=== PATIENT | female | born 1995 | race Caucasian/White ===

== ENCOUNTER 2017-03-03 19:37 | Emergency (ER) | payer BC ==
--- NOTE | 2017-03-03 20:09 | EDM.PDOC ---
ED HPI GENERAL MEDICAL PROBLEM - General Stated Complaint: HEADACHE, COUGH, VOMITING Time Seen by Provider: 03/03/17 20:04 Source of Information: Reports: Patient History Limitations: Reports: No Limitations - History of Present Illness INITIAL COMMENTS - FREE TEXT/NARRATIVE: History of present illness: [22-year-old female presenting with complaints of headache, nausea, vomiting with progressive signs and symptoms over the last 72 hours resulting in the vomiting today. Patient indicates that she just feels very unwell and felt she needed to be worked up for the flu.] Review of systems: As per history of present illness and below otherwise all systems reviewed and negative. Past medical history: As per history of present illness and as reviewed below otherwise noncontributory. Surgical history: As per history of present illness and as reviewed below otherwise noncontributory. Social history: No reported history of drug or alcohol abuse. Family history: As per history of present illness and as reviewed below otherwise noncontributory. Physical exam: HEENT: Atraumatic, normocephalic, pupils reactive, negative for conjunctival pallor or scleral icterus, mucous membranes moist, throat clear, neck supple, nontender, trachea midline. Lungs: Clear to auscultation, breath sounds equal bilaterally, chest nontender. Heart: S1S2, regular, negative for clicks, rubs, or JVD. Abdomen: Soft, nondistended, nontender. Negative for masses or hepatosplenomegaly. Negative for costovertebral tenderness. Pelvis: Stable nontender. Genitourinary: Deferred. Rectal: Deferred. Extremities: Atraumatic, negative for cords or calf pain. Neurovascular unremarkable. Neuro: Awake, alert, oriented. Cranial nerves II through XII unremarkable. Cerebellum unremarkable. Motor and sensory unremarkable throughout. Exam nonfocal. Global assessment is benign save the subjective complaint as noted in history of present illness Strep and influenza both negative patient tolerated by mouth challenge Diagnostics: [Strep, influenza] Therapeutics: [] Impression: [Viral syndrome] Plan: [Zofran, tramadol] Definitive disposition and diagnosis as appropriate pending reevaluation and review of above. throat Pain Score (Numeric/FACES): 7 head Pain Score (Numeric/FACES): 10 chest Pain Score (Numeric/FACES): 6 - Related Data Allergies Allergy/AdvReac Type Severity Reaction Status Date / Time acetaminophen [From Vicodin] Allergy Abdominal Verified 12/28/17 19:51 Pain hydrocodone bitartrate Allergy Abdominal Verified 03/03/17 19:51 [From Vicodin] Pain Home Meds: Home Meds . 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: - Infectious Disease History Infectious Disease History: Reports: None Social & Family History - Family History Family Medical History: Noncontributory - Tobacco Use Smoking Status *Q: Never Smoker Second Hand Smoke Exposure: No - Recreational Drug Use Recreational Drug Use: No ED ROS GENERAL - Review of Systems Review Of Systems: See Below (History of present illness) ED EXAM, GENERAL - Physical Exam Exam: See Below (See history of present illness) Course - Vital Signs Last Recorded V/S: Last Vital Signs Temp 35.8 C 03/03/17 19:37 Pulse 62 03/03/17 20:32 Resp 18 03/03/17 20:32 BP 114/66 03/03/17 20:32 Pulse Ox 98 03/03/17 19:37 - Orders/Labs/Meds Orders: Active Orders 24 hr Category Date Time Status CULTURE STREP A CONFIRMATION [] Stat Lab 03/03/17 20:25 Results STREP SCRN A RAPID W CULT CONF [] Stat Lab 03/03/17 20:25 Results Meds: Medications Discontinued Medications Generic Name Dose Route Start Last Admin Trade Name Bhupinderq PRN Reason Stop Dose Admin Ketorolac Tromethamine 60 mg 03/03/17 20:10 03/03/17 20:24 Toradol IM 03/03/17 20:11 60 mg ONETIME ONE Administration Ondansetron HCl 4 mg 03/03/17 20:19 03/03/17 20:32 Zofran Odt PO 03/03/17 20:20 4 mg ONETIME ONE Administration Tramadol HCl 100 mg 03/03/17 22:00 03/03/17 22:10 Ultram PO 03/03/17 22:01 100 mg ONETIME ONE Administration Departure - Departure Time of Disposition: 22:32 Disposition: Home, Self-Care 01 Condition: Good Clinical Impression: Viral syndrome - Discharge Information Referrals: PCP,Unknown [Primary Care Provider] - Additional Instructions: The following information is given to patients seen in the emergency department who are being discharged to home. This information is to outline your options for follow-up care. We provide all patients seen in our emergency department with a follow-up referral. The need for follow-up, as well as the timing and circumstances, are variable depending upon the specifics of your emergency department visit. If you don't have a primary care physician on staff, we will provide you with a referral. We always advise you to contact your personal physician following an emergency department visit to inform them of the circumstance of the visit and for follow-up with them and/or the need for any referrals to a consulting specialist. The emergency department will also refer you to a specialist when appropriate. This referral assures that you have the opportunity for follow-up care with a specialist. All of these measure are taken in an effort to provide you with optimal care, which includes your follow-up. Under all circumstances we always encourage you to contact your private physician who remains a resource for coordinating your care. When calling for follow-up care, please make the office aware that this follow-up is from your recent emergency room visit. If for any reason you are refused follow-up, please contact the [facility] Emergency Department at and asked to speak to the emergency department charge nurse. Take medication as directed Follow-up with primary care 1-2 days Return to ED as needed as discussed - My Orders Last 24 Hours: My Active Orders 03/03/17 20:25 CULTURE STREP A CONFIRMATION [RM] Stat STREP SCRN A RAPID W CULT CONF [RM] Stat - Assessment/Plan Last 24 Hours: My Active Orders 03/03/17 20:25 CULTURE STREP A CONFIRMATION [RM] Stat STREP SCRN A RAPID W CULT CONF [RM] Stat
[2017-03-03] MEDS ORDERED: Ketorolac 60 MG/2 ML SDV IM ONE (20:10)
[2017-03-03] MEDS ORDERED: Ondansetron 4 MG Tab.DIS PO ONE (20:19)
[2017-03-03] MEDS ORDERED: traMADol 50 MG Tab PO ONE (22:00)
[2017-03-04 00:47] VITALS: BP 111/59
== END 2017-03-03 23:45 | disposition home or self-care (01) ==
LOC: MW.ED 19:37
DX: B34.9 Viral infection, unspecified (principal); Z88.5 Allergy status to narcotic agent; Z88.6 Allergy status to analgesic agent
CPT/HCPCS: 87081; 87804; 87880; 96372; 99283; A9270; J1885; 99284

== ENCOUNTER 2018-05-10 20:15 | Emergency (ER) | payer BC ==
--- NOTE | 2018-05-10 21:15 | EDM.PDOC ---
<Sal Cullen - Last Filed: 05/10/18 22:00> ED HPI GENERAL MEDICAL PROBLEM - General Chief Complaint: Abdominal Pain Stated Complaint: HEADACHE, THROWING UP AND PAIN IN ABDOMINAL Time Seen by Provider: 05/10/18 21:14 Source of Information: Reports: Patient History Limitations: Reports: No Limitations - History of Present Illness INITIAL COMMENTS - FREE TEXT/NARRATIVE: HISTORY AND PHYSICAL: History of present illness: Patient is a 23-year-old female here with complaint of abdominal pain. She states she had an SI joint steroid injection yesterday by a radiologist in [place]. She was told if she had pain or headache to come to the ED. She reports she developed upper abdominal pain today. She has had 3 episodes of vomiting and some non-bloody diarrhea today. She does have pain at the injection site but states the pain is not more severe than it was prior to the injection. She denies loss of bowel or bladder control, saddle anesthesia, lower extremity weakness. She states she does have a headache today. She denies previous abdominal surgeries or significant past medical history. Review of systems: As per history of present illness and below otherwise all systems reviewed and negative. Past medical history: As per history of present illness and as reviewed below otherwise noncontributory. Surgical history: As per history of present illness and as reviewed below otherwise noncontributory. Social history: No reported history of drug or alcohol abuse. Family history: As per history of present illness and as reviewed below otherwise noncontributory. Physical exam: General: Patient sitting comfortably in no acute distress and nontoxic appearing HEENT: Atraumatic, normocephalic, pupils reactive, negative for conjunctival pallor or scleral icterus, mucous membranes moist, throat clear, neck supple, nontender, trachea midline. No meningeal signs. Lungs: Clear to auscultation, breath sounds equal bilaterally, chest nontender. Heart: S1S2, regular, negative for clicks, rubs, or overt murmur. Abdomen: Left upper abdominal and epigastric tenderness to palpation. Bowel sounds normal. Soft, nondistended. Negative for masses or hepatosplenomegaly. Negative for costovertebral tenderness. No rigidity, rebound, guarding. Pelvis: Stable nontender. Genitourinary: Deferred. Rectal: Deferred. Extremities: Atraumatic, negative for cords or calf pain. Neurovascular unremarkable. Neuro: Awake, alert, oriented. Cranial nerves II through XII unremarkable. Cerebellum unremarkable. Motor and sensory unremarkable throughout. Exam nonfocal. Notes: Diagnostics: CBC, CMP, lipase, UA, urine hcg Therapeutics: 1L Normal Saline IV 4mg Zofran IV 2mg Morphine IV Prescriptions: Impression: [] Plan: Signed out to Dr. Pickering at 2200 Definitive disposition and diagnosis as appropriate pending reevaluation and review of above. Upper Abdomen Pain Score (Numeric/FACES): 10 - Related Data Allergies Allergy/AdvReac Type Severity Reaction Status Date / Time acetaminophen [From Vicodin] Allergy Abdominal Verified 03/03/17 19:51 Pain hydrocodone bitartrate Allergy Abdominal Verified 03/03/17 19:51 [From Vicodin] Pain Home Meds: Home Meds . 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 ED EXAM, GI/ABD - Physical Exam Exam: See Below (see dictation) Course - Vital Signs Last Recorded V/S: Last Vital Signs Temp 36.8 C 05/10/18 20:40 Pulse 67 05/10/18 20:40 Resp 18 05/10/18 20:40 BP 121/72 05/10/18 20:40 Pulse Ox 98 05/10/18 20:40 - Orders/Labs/Meds Orders: Active Orders 24 hr Category Date Time Status CULTURE URINE [RM] Stat Lab 05/10/18 21:18 Received Labs: Laboratory Tests 05/10/18 05/10/18 05/10/18 Range/Units 21:18 21:18 21:29 WBC 9.51 (4.0-11.0) K/uL RBC 4.66 (4.30-5.90) M/uL Hgb 13.5 (12.0-16.0) g/dL Hct 37.3 (36.0-46.0) % MCV 80.0 (80.0-98.0) fL MCH 29.0 (27.0-32.0) pg MCHC 36.2 (31.0-37.0) g/dL RDW Std Deviation 40.9 (28.0-62.0) fl RDW Coeff of Bladimir 14 (11.0-15.0) % Plt Count 318 (150-400) K/uL MPV 9.50 (7.40-12.00) fL Neut % (Auto) 65.0 (48.0-80.0) % Lymph % (Auto) 24.7 (16.0-40.0) % [place] % (Auto) 9.5 (0.0-15.0) % Eos % (Auto) 0.7 (0.0-7.0) % Baso % (Auto) 0.1 (0.0-1.5) % Neut # (Auto) 6.2 H (1.4-5.7) K/uL Lymph # (Auto) 2.4 (0.6-2.4) K/uL [place] # (Auto) 0.9 H (0.0-0.8) K/uL Eos # (Auto) 0.1 (0.0-0.7) K/uL Baso # (Auto) 0.0 (0.0-0.1) K/uL Nucleated RBC % 0.0 /100WBC Nucleated RBCs # 0 K/uL Sodium (136-145) mmol/L Potassium (3.5-5.1) mmol/L Chloride (98-107) mmol/L Carbon Dioxide (21.0-32.0) mmol/L BUN (7.0-18.0) mg/dL Creatinine (0.6-1.0) mg/dL Est Cr Clr Drug Dosing mL/min Estimated GFR (MDRD) ml/min Glucose (74-106) mg/dL Calcium (8.5-10.1) mg/dL Total Bilirubin (0.2-1.0) mg/dL AST (15-37) IU/L ALT (14-63) IU/L Alkaline Phosphatase (46-116) U/L Total Protein (6.4-8.2) g/dL Albumin (3.4-5.0) g/dL Globulin (2.6-4.0) g/dL Albumin/Globulin Ratio (0.9-1.6) Lipase (73-393) U/L Urine Color YELLOW Urine Appearance SLT CLOUDY Urine pH 6.0 (5.0-8.0) Ur Specific Bard 1.025 (1.001-1.035) Urine Protein NEGATIVE (NEGATIVE) mg/dL Urine Glucose (UA) NEGATIVE (NEGATIVE) mg/dL Urine Ketones NEGATIVE (NEGATIVE) mg/dL Urine Occult Blood MODERATE H (NEGATIVE) Urine Nitrite NEGATIVE (NEGATIVE) Urine Bilirubin NEGATIVE (NEGATIVE) Urine Urobilinogen 0.2 (<2.0) EU/dL Ur Leukocyte Esterase SMALL H (NEGATIVE) Urine RBC 0-2 (0-2/HPF) Urine WBC 5-7 (0-5/HPF) Ur Epithelial Cells MODERATE (NONE-FEW) Urine Bacteria FEW (NEGATIVE) Urine Mucus LIGHT (NONE-MOD) Urine HCG, Qual NEGATIVE (NEGATIVE) 05/10/18 Range/Units 21:29 WBC (4.0-11.0) K/uL RBC (4.30-5.90) M/uL Hgb (12.0-16.0) g/dL Hct (36.0-46.0) % MCV (80.0-98.0) fL MCH (27.0-32.0) pg MCHC (31.0-37.0) g/dL RDW Std Deviation (28.0-62.0) fl RDW Coeff of Bladimir (11.0-15.0) % Plt Count (150-400) K/uL MPV (7.40-12.00) fL Neut % (Auto) (48.0-80.0) % Lymph % (Auto) (16.0-40.0) % [place] % (Auto) (0.0-15.0) % Eos % (Auto) (0.0-7.0) % Baso % (Auto) (0.0-1.5) % Neut # (Auto) (1.4-5.7) K/uL Lymph # (Auto) (0.6-2.4) K/uL [place] # (Auto) (0.0-0.8) K/uL Eos # (Auto) (0.0-0.7) K/uL Baso # (Auto) (0.0-0.1) K/uL Nucleated RBC % /100WBC Nucleated RBCs # K/uL Sodium 139 (136-145) mmol/L Potassium 3.7 (3.5-5.1) mmol/L Chloride 105 (98-107) mmol/L Carbon Dioxide 26.0 (21.0-32.0) mmol/L BUN 18 (7.0-18.0) mg/dL Creatinine 1.0 (0.6-1.0) mg/dL Est Cr Clr Drug Dosing 84.36 mL/min Estimated GFR (MDRD) > 60.0 ml/min Glucose 99 (74-106) mg/dL Calcium 8.8 (8.5-10.1) mg/dL Total Bilirubin 0.7 (0.2-1.0) mg/dL AST 9 L (15-37) IU/L ALT 17 (14-63) IU/L Alkaline Phosphatase 56 (46-116) U/L Total Protein 7.7 (6.4-8.2) g/dL Albumin 4.0 (3.4-5.0) g/dL Globulin 3.7 (2.6-4.0) g/dL Albumin/Globulin Ratio 1.1 (0.9-1.6) Lipase 284 (73-393) U/L Urine Color Urine Appearance Urine pH (5.0-8.0) Ur Specific Bard (1.001-1.035) Urine Protein (NEGATIVE) mg/dL Urine Glucose (UA) (NEGATIVE) mg/dL Urine Ketones (NEGATIVE) mg/dL Urine Occult Blood (NEGATIVE) Urine Nitrite (NEGATIVE) Urine Bilirubin (NEGATIVE) Urine Urobilinogen (<2.0) EU/dL Ur Leukocyte Esterase (NEGATIVE) Urine RBC (0-2/HPF) Urine WBC (0-5/HPF) Ur Epithelial Cells (NONE-FEW) Urine Bacteria (NEGATIVE) Urine Mucus (NONE-MOD) Urine HCG, Qual (NEGATIVE) Meds: Medications Discontinued Medications Generic Name Dose Route Start Last Admin Trade Name Freq PRN Reason Stop Dose Admin Sodium Chloride 1,000 mls @ 999 mls/hr 05/10/18 21:43 05/10/18 21:30 Normal Saline IV 05/10/18 22:43 999 mls/hr STAT ONE Administration Iopamidol 100 ml 05/10/18 22:16 05/10/18 22:16 Isovue Multipack-370 (76%) IVPUSH 05/10/18 22:17 100 ml ONETIME STA Administration Morphine Sulfate 2 mg 05/10/18 21:47 05/10/18 21:50 Morphine IVPUSH 05/10/18 21:48 2 mg ONETIME ONE Administration Morphine Sulfate Confirm 05/10/18 21:48 05/10/18 21:53 Morphine Administered 05/10/18 21:49 Not Given Dose 2 mg .ROUTE .STK-MED ONE Ondansetron HCl 4 mg 05/10/18 21:43 05/10/18 21:49 Zofran IVPUSH 05/10/18 21:44 4 mg ONETIME ONE Administration Departure - Departure Disposition: Home, Self-Care 01 Clinical Impression: Abdominal pain Qualifiers: Abdominal location: left upper quadrant Qualified Code(s): R10.12 - Left upper quadrant pain - Discharge Information Referrals: PCP,None [Primary Care Provider] - Forms: ED Department Discharge Additional Instructions: The following information is given to patients seen in the emergency department who are being discharged to home. This information is to outline your options for follow-up care. We provide all patients seen in our emergency department with a follow-up referral. The need for follow-up, as well as the timing and circumstances, are variable depending upon the specifics of your emergency department visit. If you don't have a primary care physician on staff, we will provide you with a referral. We always advise you to contact your personal physician following an emergency department visit to inform them of the circumstance of the visit and for follow-up with them and/or the need for any referrals to a consulting specialist. The emergency department will also refer you to a specialist when appropriate. This referral assures that you have the opportunity for followup care with a specialist. All of these measure are taken in an effort to provide you with optimal care, which includes your followup. Under all circumstances we always encourage you to contact your private physician who remains a resource for coordinating your care. When calling for followup care, please make the office aware that this follow-up is from your recent emergency room visit. If for any reason you are refused follow-up, please contact the [facility] emergency department at and ask to speak to the emergency department charge nurse. [facility]-General [facility] Professional Building [address] [place] [address] [address] [place], [place] [id number] Please eat a full liquid diet for the next 2-3 days and use [id number] Mylicon or Gas-X to help evacuate gas. Please call and schedule a appointment for follow-up with Dr. Edmondson using resources given to above. Use medications as prescribed, Zofran and dicyclomine, for nausea vomiting and cramping. Use may also use a tramadol as needed and prescribed. Return to ER as needed and as discussed but especially if you are unable to tolerate fluids despite the Zofran you have been given, fevers of 100.5 or higher or increasing abdominal distention <Medina Pickering - Last Filed: 05/10/18 22:53> ED HPI GENERAL MEDICAL PROBLEM - History of Present Illness INITIAL COMMENTS - FREE TEXT/NARRATIVE: CT scan has been reviewed by me as it was endorsed to me at 10 PM and I've also discussed it with Dr. Edmondson at 10:47 PM. As this is nonobstructing he says that the patient may have discomfort in that area but there is no need for admission or any surgical intervention at this time. He is recommending a full liquid diet for the next 3 days and I will give her Zofran for nausea and vomiting as well as some Bentyl that she can utilize for discomfort. I've also recommended [id number] preps such as Mylicon for gas evacuation. I my examination her abdomen is not distended and she has some tympany on percussion more on the right upper quadrant and mid abdomen without rebound or guarding and there is only some mild diffuse tenderness of the upper abdomen more in the left upper quadrant. I discussed with her the CT scan findings and that is unclear when this anatomical change has occurred but as there is no obstruction she does not need to stay in the hospital. I've advised her on reasons to return to the ED. Dr. Edmondson has taken her name and will follow her in the clinic and I will give her that information. He also says he is going to review her CT scan in the morning when he comes in to do rounds. Impression: Upper abdominal pain with non-acute CT scan findings of a possible nonobstructing internal hernia of the splenic flexure of the colon Departure - Departure Time of Disposition: 22:51 Condition: Good
[2018-05-10] MEDS ORDERED: Sodium Chloride 0.9% 1,000 ML IV ONE (21:43)
[2018-05-10] MEDS ORDERED: Ondansetron 4 MG/2 ML SDV IVPUSH ONE (21:43)
[2018-05-10] MEDS ORDERED: Morphine 2 MG/ML Syringe IVPUSH ONE (21:47)
[2018-05-10] MEDS ORDERED: Morphine 2 MG/ML Syringe ONE (21:48)
[2018-05-10 21:53] LABS: CHLORIDE,CL 105 mmol/L (98-107); SODIUM,NA 139 mmol/L (136-145)
[2018-05-10] MEDS ORDERED: Iopamidol 755 MG/ML 500 ML Multipack Bottle IVPUSH STA (22:16)
--- NOTE | 2018-05-10 22:34 | CT ---
INDICATION: Left upper quadrant pain TECHNIQUE: CT Abdomen and pelvis with i.v. contrast. Coronal and sagittal reformats were obtained. CONTRAST: 100 mL Isovue 370 COMPARISON: None FINDINGS: Lower chest: Unremarkable. Liver: Mild periportal edema is present which may be due to progressive intravenous hydration. Spleen: Unremarkable. Pancreas: Unremarkable. Gallbladder: Unremarkable. Kidney: Unremarkable. No kidney or ureteral stones or obstruction seen. Adrenal: Unremarkable. Bowel: There is a short segment of the splenic flexure seen extending medially to the stomach and positioned along the lesser curvature on image 28. The appendix is normal in appearance and size. Vascular: Persistent left IVC is noted which is a normal variant. Lymph: Unremarkable. Peritoneum: Unremarkable. No pneumoperitoneum is seen. No significant ascites is noted. Pelvis: An IUD is present in the uterine cavity near the fundus with no identified complications. Soft tissue: Unremarkable. Bone: Mild dextroscoliosis of the thoracolumbar junction is noted. IMPRESSION: 1. There is a short segment of the splenic flexure seen extending medially to the stomach and positioned along the lesser curvature on image 28. Findings likely due to nonobstructing internal hernia of the splenic flexure. Dictated by Zeeshan Rodrigues MD @ 05/10/2018 10:31:56 PM Please note that all CT scans at this facility use dose modulation, iterative reconstruction, and/or weight-based dosing when appropriate to reduce radiation dose to as low as reasonably achievable. Dictated by: Zeeshan Rodrigues MD @ 05/10/2018 22:32:00 (Electronically Signed)
[2018-05-10 23:08] VITALS: BP 129/60
== END 2018-05-10 23:05 | disposition home or self-care (01) ==
LOC: MW.ED 20:15
DX: R10.12 Left upper quadrant pain (principal)
CPT/HCPCS: 36415; 74177; 80053; 81001; 81025; 83690; 85025; 87086; 96361; 96374; 96375; 99284; J2270; J2405; J7040; Q9967

== ENCOUNTER 2019-08-28 12:12 | Day surgery (SDC) | payer BC ==
[2019-08-28] MEDS ORDERED: Lidocaine 2% 5 ML SDV INJECT ONE (14:00)
[2019-08-28] MEDS ORDERED: Ropivacaine 0.5% 5 MG/ML 30 ML SDV INJECT ONE (14:00)
[2019-08-28] MEDS ORDERED: Betamethasone Acetate/Betamethasone Sod Phosphate 30 MG/5 ML MDV EPIDUR ONE (14:00)
[2019-08-28] MEDS ORDERED: Iopamidol 200-M 10 ML vial ITHECAL ONE (14:00)
--- NOTE | 2019-08-28 19:35 | OR ---
SURGEON: Ching Toledo D.O. DATE OF PROCEDURE: 08/28/2019 OR STAFF PRESENT: 1. Suly Watkins RN. 2. Dee Carter RN. 3. Terrence Hebert, RT. PREOPERATIVE DIAGNOSES: 1. Lumbar facet arthropathy at L3-4, L4-5, and L5-S1. 2. Chronic low back pain. 3. Lumbosacral facet joint syndrome. POSTOPERATIVE DIAGNOSES: 1. Lumbar facet arthropathy at L3-4, L4-5, and L5-S1. 2. Chronic low back pain. 3. Lumbosacral facet joint syndrome. PROCEDURES PERFORMED: 1. Right L4-5 facet joint injection 2. Right L5-S1 facet joint injection 3. Left L4-5 facet joint injection 4. Left L5-S1 facet joint injection 5. Fluoroscopic guidance for needle placement. 6. Local with oral Valium for sedation. SCREENING QUESTIONS: The patient answered "No" to all the following questions: 1. Are you allergic to iodine, Betadine or latex? 2. Do you have a bleeding disorder? 3. Are you on anti-inflammatories or blood thinners? 4. Do you have any current local or systemic infections? DESCRIPTION OF PROCEDURE: The patient had the procedure thoroughly explained including risks, benefits and alternatives. Consent was signed in my clinic indicating understanding and willingness to proceed. The patient presented to [facility] [place] and was escorted to the dressing room to disrobe and change into a hospital gown. Preoperative history and screening were performed by my nurse. Vital signs were taken and stable. The patient reported that Valium 10 milligrams was taken prior to the procedure. The patient was brought back to the procedure room and placed in the prone position on the procedure room table. A pillow was placed under the abdomen in order to flatten the lumbar lordosis. The back was prepped with ChloraPrep and sterilely draped. All personnel in the procedure room were dressed in appropriate attire including surgical scrubs, head and shoe covers. This was to ensure sterility while in the treatment room. During the time fluoroscopy was in use all personnel in the operating room wore lead prajapati with thyroid collars. Sterile technique was used during the procedure. Then the fluoroscope was positioned to provide a right oblique view for the right L4-5 facet joint injection. This was begun by anesthetizing the skin and soft tissues. The patient had severe pain with subcutaneous local injection with burning sensation but wanted to continue with the injection therapy and procedure was continued with informed consent. The fluoroscope was positioned and a sterile 22-gauge 3.5 inch spinal needle was placed at the "ear of the Cristobal dog" for the lumbar facet block. Precise needle placement was confirmed by fluoroscopy and also with increments of 0.2 cubic centimeters of IsoVue-200 contrast dye was injected through microbore tubing under live fluoroscopy and showed no intravascular flow pattern and adequate flow over the target facet joint. After negative aspiration, 1.0 cubic centimeters of a mixture of Celestone and local was injected without complications. This was repeated as above for the left L4-5 facet joint injection. The fluoroscope was then positioned to provide a right L5-S1 facet joint injection. This was begun by anesthetizing the skin and soft tissues over the right facet joint. Then using fluoroscopic guidance, a sterile 22-gauge 3.5 inch spinal needle was positioned at the right "ear of the Cristobal dog". Precise needle placement was confirmed by fluoroscopy in AP and oblique views, and with 0.2 cubic centimeter increments of IsoVue-200 contrast dye injected through microbore tubing under live fluoroscopy and showed no intravascular flow pattern and adequate flow over the target facet joint. After negative aspiration, 1.0 cubic centimeters of Celestone and local was injected. No complications were noted. The procedure was repeated for the right L5-S1 facet joint injection. The procedures were tolerated but she reported burning pain reaction to local subcutaneous numbing medication. Patient wished to proceed with injection therapy and vital signs were stable during and after the procedures. The staff escorted the patient to the recovery area. The patient was given both oral and written discharge and followup instructions. The patient will follow up with a pain diary which will be evaluated over this evening in the next few weeks doing things that would normally cause pain to evaluate the efficacy of facet blocks. The patient was given both oral and written discharge and followup instructions. The patient voiced understanding including understanding of those signs and symptoms that would require emergency care and knows how to contact the office if there are any questions or concerns in the meantime. PREOPERATIVE PAIN: 6/10. POSTOPERATIVE PAIN: 10. FOLLOWUP: In the Pain Clinic in one month. SAAD / MODL /[id number] MTDD
== END 2019-08-28 14:30 | disposition home or self-care (01) ==
LOC: MW.SDS 12:12
PROVIDERS: ATTEND Anesthesiology
DX: G89.29 Other chronic pain (principal); M47.817 Spondylosis without myelopathy or radiculopathy, lumbosacral region; M41.9 Scoliosis, unspecified; M79.18 Myalgia, other site
CPT/HCPCS: 64493; 64494; J0702; J2001; J2795; Q9966; 64450

== ENCOUNTER 2019-11-06 11:01 | Day surgery (SDC) | payer BC ==
[2019-11-06] MEDS ORDERED: Betamethasone Acetate/Betamethasone Sod Phosphate 30 MG/5 ML MDV EPIDUR ONE (12:30)
[2019-11-06] MEDS ORDERED: Lidocaine 2% 5 ML SDV INJECT ONE (12:30)
[2019-11-06] MEDS ORDERED: Iopamidol 200-M 10 ML vial ITHECAL ONE (12:30)
[2019-11-06] MEDS ORDERED: Ropivacaine 0.5% 5 MG/ML 30 ML SDV INJECT ONE (12:30)
--- NOTE | 2019-11-06 18:18 | OR ---
SURGEON: Ching Toledo D.O. DATE OF PROCEDURE: 11/06/2019 PRIMARY SURGEON: Ching Toledo DO ASSISTANTS: OR staff present: 1. Terrence Krishnan RN. 2. Dee Carter RN. 3. Dorita Chawla RT. WOUND CLASS: I. PREOPERATIVE DIAGNOSES: 1. Chronic low back pain. 2. Lumbar facet arthropathy, L4-5. 3. Degenerative disk disease. 4. Left neural foraminal stenosis. POSTOPERATIVE DIAGNOSES: 1. Chronic low back pain. 2. Lumbar facet arthropathy L2 through L5-S1 3. Degenerative disk disease L4-5 4. Left neural foraminal stenosis at L4-5. Postop diagnosis: Same PROCEDURES PERFORMED: 1. Left L4 transforaminal epidural steroid injection. 2. Fluoroscopic guidance for needle placement. 3. Local with oral Valium for sedation. SCREENING QUESTIONS: The patient answered "no" to all of the following questions: 1. Are you allergic to iodine, Betadine or latex? 2. Do you have a bleeding disorder? 3. Do you have any joint replacements, heart valve replacements, or a pacemaker? 4. Are you allergic to anti-inflammatories or blood thinners? 5. Do you have any current local or systemic infections? DESCRIPTION OF PROCEDURE: The patient had the procedure thoroughly explained including risks, benefits and alternatives. Consent was signed in my clinic indicating understanding and willingness to proceed. The patient presented to [facility] [place] where the patient was escorted to the dressing room to disrobe and change into a hospital gown. Preoperative vital signs were taken and stable. The patient reported that Valium was taken prior to the procedure. The patient was brought to the procedure room and placed in the prone position on the table. A pillow was placed under the abdomen in order to flatten the lumbar lordosis. The back was prepped with ChloraPrep and sterilely draped. All personnel in the operating room were dressed in appropriate attire including surgical scrubs, head and shoe covers. This was to ensure sterility while in the treatment room. During the time fluoroscopy was in use, all personnel in the operating room wore lead prajapati with thyroid collars. Sterile technique was used during the procedure. The fluoroscope was placed for the left L4 transforaminal epidural steroid injection. There was no sign of infection at the skin site for needle insertion. The skin was anesthetized with 2% lidocaine with a 27 gauge 1-1/2 inch needle. Then, a 22 gauge 3-1/2 inch spinal needle, advanced to the left L4. Under direct fluoroscopic guidance needle position was verified in three views; AP, oblique and lateral, with 0.2 cubic centimeters increments of Isovue- 200 dye. No intravascular flow pattern was observed under live fluoroscopy. Then 12 milligrams of Celestone was slowly injected after negative aspiration of heme, cerebrospinal fluid and no paresthesias were noted. The needle was cleared prior to removal from the skin. No adverse reactions were noted. The patient was brought to the recovery room awake and in good condition by my staff. The patient was monitored and discharge instructions were given after a brief stay in the recovery area. Both oral and written discharge and follow up instructions were given. The patient will follow up in the clinic in 3-4 weeks post procedure to evaluate the efficacy. The patient verbalized understanding including understanding of those signs and symptoms that would require emergency care and knows how to contact the office if there are any problems or questions in the meantime. PREOPERATIVE PAIN: 6/10. POSTOPERATIVE PAIN: 4/10. FOLLOWUP: In the Pain Clinic in 3 weeks. HOGJASIEL / JOHN /[id number] STEVEN
== END 2019-11-06 13:25 | disposition home or self-care (01) ==
LOC: MW.SDS 11:01
PROVIDERS: ATTEND Anesthesiology
DX: G89.29 Other chronic pain (principal); M51.36 Other intervertebral disc degeneration, lumbar region; M48.061 Spinal stenosis, lumbar region without neurogenic claudication; M99.53 Intervertebral disc stenosis of neural canal of lumbar region; M47.816 Spondylosis without myelopathy or radiculopathy, lumbar region; M41.86 Other forms of scoliosis, lumbar region; M79.18 Myalgia, other site; Z88.5 Allergy status to narcotic agent
CPT/HCPCS: 64483; J0702; J2001; J2795; Q9966

== ENCOUNTER 2020-01-29 11:04 | Day surgery (SDC) | payer BC ==
[2020-01-29] MEDS ORDERED: Lidocaine 2% 5 ML SDV INJECT ONE (12:30)
[2020-01-29] MEDS ORDERED: Ropivacaine 0.5% 5 MG/ML 30 ML SDV INJECT ONE (12:30)
[2020-01-29] MEDS ORDERED: Iopamidol 200-M 10 ML vial ITHECAL ONE ×2 (12:30)
[2020-01-29] MEDS ORDERED: Betamethasone Acetate/Betamethasone Sod Phosphate 30 MG/5 ML MDV EPIDUR ONE (12:30)
--- NOTE | 2020-01-29 15:07 | OR ---
SURGEON: Ching Toledo D.O. DATE OF PROCEDURE: 01/29/2020 PRIMARY SURGEON: Ching Toledo DO ASSISTANTS: OR staff present: 1. Clarence Suresh, RT. 2. Zaid Anderson RN. 3. DIGNA Banks. PREOPERATIVE DIAGNOSES: 1. Lumbar degenerative disk disease, L4-5 and L5-S1. 2. Bilateral lower extremity L4-5-S1 radiculopathy. 3. Lumbar spondylosis, L2-3 through L5-S1. POSTOPERATIVE DIAGNOSES: 1. Lumbar degenerative disk disease, L4-5 and L5-S1. 2. Bilateral lower extremity L4-5-S1 radiculopathy. 3. Lumbar spondylosis, L2-3 through L5-S1. PROCEDURES PERFORMED: 1. Left L4 transforaminal epidural steroid injection. 2. Right L5 transforaminal epidural steroid injection. 3. Fluoroscopic guidance for needle placement. 4. Local with oral Valium for sedation. SCREENING QUESTIONS: The patient answered "no" to all of the following questions: 1. Are you allergic to iodine, Betadine or latex? 2. Do you have a bleeding disorder? 3. Do you have any joint replacements, heart valve replacements, or a pacemaker? 4. Are you allergic to anti-inflammatories or blood thinners? 5. Do you have any current local or systemic infections? DESCRIPTION OF PROCEDURE: The patient had the procedure thoroughly explained including risks, benefits and alternatives. Consent was signed in my clinic indicating understanding and willingness to proceed. The patient presented to [facility] [place] where the patient was escorted to the dressing room to disrobe and change into a hospital gown. Preoperative vital signs were taken and stable. The patient reported that Valium was taken prior to the procedure. The patient was brought to the procedure room and placed in the prone position on the table. A pillow was placed under the abdomen in order to flatten the lumbar lordosis. The back was prepped with ChloraPrep and sterilely draped. All personnel in the operating room were dressed in appropriate attire including surgical scrubs, head and shoe covers. This was to ensure sterility while in the treatment room. During the time fluoroscopy was in use, all personnel in the operating room wore lead prajapati with thyroid collars. Sterile technique was used during the procedure. The fluoroscope was placed for the left L4 transforaminal epidural steroid injection. There was no sign of infection at the skin site for needle insertion. The skin was anesthetized with 2% lidocaine with a 27 gauge 1-1/2 inch needle. Then, a 22 gauge 3-1/2 inch spinal needle was advanced to the left L4-5 foramen identified with an oblique view of approximately 15 and the vertebral body endplates were squared. Under direct fluoroscopic guidance needle was advanced carefully until the needle tip was near the cephalad portion of the foramen of the lateral view and near the 6 o'clock position of the pedicle in the AP view. The needle position was verified in three views; AP, oblique and lateral, and with 0.2 cubic centimeters increments of Isovue-200 dye and show no intravascular flow pattern was observed under live fluoroscopy.Then 6 milligrams of Celestone and local was slowly injected after negative aspiration of heme, cerebrospinal fluid and no paresthesias were noted. The needle was cleared prior to removal from the skin. The fluoroscope was then positioned for the right L5 transforaminal epidural steroid injection. The right L5-S1 Foramen was identified with an oblique view of approximately 15 and endplates of L5 were squared. A skin wheal and deep tissues were infiltrated with local. A 22-gauge spinal needle was advanced carefully until the tip was near the cephalad portion of the foramen the lateral view near the 6 o'clock position of the pedicle on the AP views. Using live fluoroscopy in both AP and lateral views 0.2 mL increments of contrast dye was slowly injected showing no evidence of vascular uptake, negative aspiration. Then 6 mg of Celestone and local was slowly injected after negative aspiration of heme, CSF and no paresthesias were noted. The needle was cleared prior to removal from the skin. No adverse reactions were noted. The patient was brought to the recovery room awake and in good condition by my staff. The patient was monitored and discharge instructions were given after a brief stay in the recovery area. Both oral and written discharge and follow up instructions were given. The patient will follow up in the clinic in 3-4 weeks post procedure to evaluate the efficacy. The patient verbalized understanding including understanding of those signs and symptoms that would require emergency care and knows how to contact the office if there are any problems or questions in the meantime. PREOPERATIVE PAIN: 9/10. POSTOPERATIVE PAIN: 10. FOLLOWUP: In the Pain Clinic in 3 weeks. HOGLCHR / JOHN /[id number] STEVEN
== END 2020-01-29 13:22 ==
LOC: MW.SDS 11:04
PROVIDERS: ATTEND Anesthesiology
DX: M51.17 Intervertebral disc disorders with radiculopathy, lumbosacral region (principal); M51.16 Intervertebral disc disorders with radiculopathy, lumbar region; M47.26 Other spondylosis with radiculopathy, lumbar region; M47.27 Other spondylosis with radiculopathy, lumbosacral region; M79.18 Myalgia, other site; M99.73 Connective tissue and disc stenosis of intervertebral foramina of lumbar region; M41.9 Scoliosis, unspecified; Z88.5 Allergy status to narcotic agent; Z88.8 Allergy status to other drugs, medicaments and biological substances; Z79.899 Other long term (current) drug therapy
CPT/HCPCS: 64483; 64484; J0702; J2001; J2795; Q9966

== ENCOUNTER 2020-02-07 12:37 | Day surgery (SDC) | payer BC ==
[2020-02-07] MEDS ORDERED: Ropivacaine 0.5% 5 MG/ML 30 ML SDV INJECT ONE (14:00)
[2020-02-07] MEDS ORDERED: Lidocaine 2% 5 ML SDV INJECT ONE (14:00)
[2020-02-07] MEDS ORDERED: Iopamidol 200-M 10 ML vial ITHECAL ONE (14:00)
--- NOTE | 2020-02-07 18:24 | OR ---
SURGEON: Ching Toledo D.O. DATE OF PROCEDURE: 02/07/2020 PRIMARY SURGEON: Ching Toledo D.O. GAME SHOW HOST: OR staff present: 1. Suly Watkins. 2. Dee Carter RN. 3. Suly Holden RT. WOUND CLASS: I. PREOPERATIVE DIAGNOSES: 1. Lumbar spondylosis. 2. Thoracolumbar scoliosis. 3. Chronic low back pain. 4. L5-S1 posterior disk protrusion. POSTOPERATIVE DIAGNOSES: 1. Lumbar spondylosis. 2. Thoracolumbar scoliosis. 3. Chronic low back pain. 4. L5-S1 posterior disk protrusion. PROCEDURES PERFORMED: 1. Left L3 medial branch block. 2. Left L4 medial branch block. 3. Left L5 medial branch block. 4. Fluoroscopic guidance for needle placement. 5. Local with oral Valium for sedation. SCREENING QUESTIONS: The patient answered "No" to all the following questions: 1. Are you allergic to iodine, Betadine or latex? 2. Do you have a bleeding disorder? 3. Are you on anti-inflammatories or blood thinners? 4. Do you have any current local or systemic infections? MEDICAL NECESSITY: This is a patient with chronic low back pain who comes in for the above diagnostic procedure. This procedure is being performed in accordance with national guidelines written by the [employer]; please see medical necessity note in chart. DESCRIPTION OF PROCEDURE: The patient had the procedure thoroughly explained including risks, benefits and alternatives. Consent was signed in my clinic indicating understanding and willingness to proceed. The patient presented to [facility] [place] and was escorted to the dressing room to disrobe and change into a hospital gown. Preoperative history and screening were performed by my nurse. Vital signs were taken and stable. The patient reported that Valium 10 milligrams was taken prior to the procedure. The patient was brought back to the procedure room and placed in the prone position on the procedure room table. A pillow was placed under the abdomen in order to flatten the lumbar lordosis. The back was prepped with ChloraPrep and sterilely draped. All personnel in the procedure room were dressed in appropriate attire including surgical scrubs, head and shoe covers. This was to ensure sterility while in the treatment room. During the time fluoroscopy was in use all personnel in the operating room wore lead prajapati with thyroid collars. Sterile technique was used during the procedure. Then the fluoroscope was positioned to provide a right oblique view for the right L4 medial branch. This was begun by anesthetizing the skin and soft tissues. The fluoroscope was positioned and a sterile 22-gauge 3.5 inch needle was placed at the junction of the transverse process in the superior articular process of the L5 vertebral body. Precise needle placement was confirmed by fluoroscopy. Then 0.2 cubic centimeters of IsoVue-200 contrast dye was injected through microbore tubing under live fluoroscopy and showed no intravascular flow pattern and adequate flow over the target medial branch. After negative aspiration, 0.5 cubic centimeters of 0.5% Ropivacaine was injected without complications. The fluoroscope was then positioned to provide a right L5 dorsal ramus block. This was begun by anesthetizing the skin and soft tissues over the right sacral sulcus. Then using fluoroscopic guidance, a sterile 22-gauge 3.5 inch spinal needle was positioned at the right sacral ala. Precise needle placement was confirmed by fluoroscopy in AP and oblique views, and 0.2 cubic centimeters of IsoVue-200 contrast dye was injected through microbore tubing under live fluoroscopy and showed no intravascular flow pattern and adequate flow over the target nerves. After negative aspiration, 0.5 cubic centimeters of 0.5% Ropivacaine was injected. No complications were noted. The fluoroscope was positioned then to provide a left L4 medial branch block. The skin was anesthetized. Then a 22-gauge 3.5 inch spinal needle was positioned at the junction of the transverse process in the superior articular process of the L5 vertebral body on the left. Precise needle placement was confirmed by fluoroscopy and with 0.2 cubic centimeters of IsoVue-200 contrast dye injected through microbore tubing showing no intravascular flow pattern and adequate flow over the target medial branch of L4 on the left. Then 0.5 cubic centimeters of 0.5% Ropivacaine was injected after negative aspiration without complications. Then the fluoroscope was positioned for the left L5 dorsal ramus block. This was begun by anesthetizing the skin and soft tissues. Then with fluoroscopic guidance a sterile 22-gauge 3.5 inch spinal needle was positioned at the left sacral ala. Precise needle placement was confirmed with 0.2 cubic centimeters of IsoVue-200 contrast dye injected through microbore tubing under live fluoroscopy showing no intravascular flow pattern and adequate flow over the target L5 nerve. Then 0.5 cubic centimeters of 0.5% Ropivacaine was injected after negative aspiration without complications. The procedure was well tolerated and vital signs were stable during and after the procedure. The staff escorted the patient to the recovery area. The patient was given both oral and written discharge and followup instructions. The patient will follow up with a pain diary which will be evaluated over this evening doing things that would normally cause pain. We will evaluate the efficacy of the diagnostic lumbar medial branch blocks as the patient will follow up in the clinic the next day. The patient was given both oral and written discharge and followup instructions. The patient voiced understanding including understanding of those signs and symptoms that would require emergency care and knows how to contact the office if there are any questions or concerns in the meantime. PREOPERATIVE PAIN: 9/10. POSTOPERATIVE PAIN: 6/10. PLAN: Followup in the Pain Clinic with pain diary in 1 day. SAAD / JOHN /[id number]
== END 2020-02-07 14:34 ==
LOC: MW.SDS 12:37
PROVIDERS: ATTEND Anesthesiology
DX: G89.29 Other chronic pain (principal); M47.26 Other spondylosis with radiculopathy, lumbar region; M41.85 Other forms of scoliosis, thoracolumbar region; M51.17 Intervertebral disc disorders with radiculopathy, lumbosacral region; M47.27 Other spondylosis with radiculopathy, lumbosacral region; M51.16 Intervertebral disc disorders with radiculopathy, lumbar region; M79.18 Myalgia, other site; Z88.5 Allergy status to narcotic agent; Z88.8 Allergy status to other drugs, medicaments and biological substances; Z79.899 Other long term (current) drug therapy; Z98.890 Other specified postprocedural states